=== PATIENT | female | born 1965 | race Two or more races ===

== ENCOUNTER 2024-07-30 09:33 | Emergency (ER) | payer MEDICAID, SELFPAY ==
[2024-07-30 09:34] VITALS: BMI 23.8
[2024-07-30 09:40] VITALS: BP 126/88; PULSE 87; RESP 16; TEMP 36.6; O2SAT 100; BMI 22.6
--- NOTE | 2024-07-30 09:55 | XR_ITS ---
Examination: CT brain head without contrast. 2-D sagittal coronal reconstructions Date and time of exam:2024 10:30 AM Indications: Headaches beginning this morning CTDI: vol (mGy):45.7 DLP: (mGycm):917 Technique: Multiple CT axial sections of the brain have been obtained, 5 mm slice thickness. Contrast has not been administered. 2-D sagittal, coronal reconstructions have been obtained Low dose protocols were performed. One or more of the following dose reduction techniques were used; automated exposure control, adjustment of the mA and/or KV according to patient size, use of iterative reconstruction technique. Findings: No significant ventricular enlargement. Intra-axial or extra-axial hemorrhage density is not seen. No mass effect or midline shift Basal cisterns are not remarkable. Fourth ventricle is midline. Cranial vault intact. Impression: Negative for acute hemorrhage, mass effect or midline shift Significant chronic right sphenoid sinusitis
--- NOTE | 2024-07-30 11:34 | PD.EDHA ---
ED Headache RME/HPI General Chief Complaint: Headache Stated Complaint: EYES HURT A LOT Time Seen by Provider: 07/30/24 09:39 Arrival date/time: 07/30/24 09:33 59-year-old female presents to the emergency department with complaints of headache and eye starting patient ports no fever nausea vomiting no neck pain Limitations: no limitations Related Data Home Medications ?Medication ?Instructions ?Recorded ?Confirmed estradiol 0.01% (0.1 mg/gram) 1 gm vaginal DIRECTED 02/02/20 03/28/24 vaginal cream (Estrace) ascorbic acid (vitamin C) 1,000 mg 1,000 mg PO DAILY 08/14/21 03/28/24 tablet (Vitamin C) metformin 850 mg tablet 850 mg PO QDAY 12/25/22 03/28/24 metoclopramide HCl 5 mg tablet 5 mg PO QAC 12/25/22 03/28/24 omeprazole 40 mg capsule,delayed 40 mg PO QDAY 12/25/22 03/28/24 release Previous Rx's ?Medication ?Instructions ?Recorded hydrocortisone acetate 25 mg 25 mg PA QHS #24 ea 03/28/24 rectal suppository amoxicillin 875 mg-potassium 1 tab PO BID 7 days #14 tabs 07/30/24 clavulanate 125 mg tablet ibuprofen 600 mg tablet 600 mg PO Q6H #30 tabs 07/30/24 tobramycin 0.3 % eye drops 2 drp ophthalmic (eye) Q4H 5 days 07/30/24 #5 mL Allergies Allergy/AdvReac Type Severity Reaction Status Date / Time sulfamethoxazole (From Allergy Severe Rash Verified 07/30/24 09:37 Bactrim) trimethoprim (From Bactrim) Allergy Severe Rash Verified 07/30/24 09:37 Review of Systems Review of Systems Systems Reviewed: All systems reviewed, normal except as documented Constitutional Constitutional: Reports system reviewed and no additional complaints, except as documented, Denies fever(s) and Reports headache(s) Eyes Eyes: Reports system reviewed and no additional complaints, except as documented and Denies blurry vision ENT Ears, Nose, Mouth, and Throat: Reports system reviewed and no additional complaints, except as documented, Reports headache(s), Reports nasal congestion and Reports nasal discharge Cardiovascular Cardiovascular: Reports system reviewed and no additional complaints, except as documented, Denies chest pain and Denies dyspnea Respiratory Respiratory: Reports system reviewed and no additional complaints, except as documented, Denies chest congestion, Denies cough and Denies dyspnea Gastrointestinal Gastrointestinal: Reports system reviewed and no additional complaints, except as documented and Denies abdominal pain Integumentary/Breasts Skin/Breast: Reports system reviewed and no additional complaints, except as documented and Denies rash Neurologic Neurologic: Reports system reviewed and no additional complaints, except as documented, Reports as per HPI and Reports headache(s) Past Medical History Past Medical History NEUROLOGIC: Negative Neurological Disorders, Cerebrovascular Accident, Transient Ischemic Attacks (TIA), Dementia, Alzheimer's Disease, Parkinson's Disease, Brain Tumor, Meningitis, Seizures, Epilepsy, Multiple Sclerosis, Cerebral Palsy, Amyotrophic Lateral Sclerosis (ALS/Gladys Gehrig's), Guillain-Amana Syndrome, Spina Bifida, Paralysis, Peripheral Neuropathy, Dubois's Palsy, Subdural Hematoma, Migraine, Head Trauma, Spinal Cord Injury or Traumatic Brain Injury CARDIAC: Positive Cardiac Disorders, Hypercholesterolemia and Hypertension; Negative Myocardial Infarction, Cardiac Arrhythmia, Atrial Fibrillation, Angina, Heart Murmur, Coronary Artery Disease, Atherosclerotic Heart Disease, Peripheral Vascular Disease, Aneurysm, Congestive Heart Failure, Congenital Heart Disease, Valvular Heart Disease, Rheumatic Fever, Cardiomyopathy, Edema, Pericarditis, Cellulitis, Deep Vein Thrombosis, Hypotension or Varicose Veins RESPIRATORY: Negative Chronic Obstructive Pulmonary Disease (COPD), Asthma, Bronchitis, Emphysema, Pneumonia, Pulmonary Fibrosis, Cystic Fibrosis, Tuberculosis, Pulmonary Embolism, Pulmonary Edema or Sleep Apnea GASTROINTESTINAL: Positive Gastrointestinal Disorders, Gastrointestinal Bleed, Hemorrhoids and Gastroesophageal Reflux Disease; Negative Hepatitis, Cirrhosis, Pancreatitis, Celiac Disease, Gall Bladder Disease, Esophageal Varices, Florez's Esophagus, Colitis, Ulcerative Colitis, Diverticulitis, Diverticulosis, Ulcer, Colorectal Cancer, Irritable Bowel, Crohn's Disease, Obstructive Bowel, Hiatal Hernia or Obesity GENITOURINARY: Positive Genitourinary Disorders and Kidney Stones; Negative Renal Disease, Polycystic Kidney Disease, Neurogenic Bladder, Inguinal Hernia or Dialysis REPRODUCTIVE: Positive Previous Pregnancies (); Negative Breast Cancer, Endometriosis, Pelvic Inflammatory Disease or Uterine Prolapse MUSCULOSKELETAL: Positive Musculoskeletal Disorders, Degenerative Disk Disease and Fractures (Fell at work, right arm ligament tear.); Negative Muscular Dystrophy, Myasthenia Gravis, Marfan's Syndrome, Bone Cancer, Arthritis, Rheumatoid Arthritis, Osteoporosis, Gout, Scoliosis, Carpal Tunnel Syndrome, Fibromyalgia, Degenerative Joint Disease, Osteomyelitis or Poliovirus ENT: Negative Cataracts, Glaucoma, Blind, Retinal Detachment, Macular Degeneration, Ear Infection, Deafness, Head Trauma or Eye Prosthesis ENDOCRINE: Positive Endocrine Disorders and Diabetes Mellitus Type 2; Negative Diabetes Mellitus Type 1, Hypoglycemia, Taylor's Syndrome, [place]'s Disease, Hyperthyroidism, Hypothyroidism, Parathyroid Disease, Pituitary Disease, Systemic Lupus Erythematosus, Syndrome of Inappropriate Antidiuretic Hormone (SIADH), Adrenal Disease or Graves' Disease HEMATOLOGIC: Negative Blood Disorders, Anemia, Leukemia, Hemophilia, Thalassemia, Sickle Cell Disease or Clotting Problems PSYCHO/SOCIAL: Positive Depression and Anxiety; Negative Psychiatric Problems, Schizophrenia, Recreational Drug Use, Bipolar Disorder, Behavior Problems, Self-Mutilation, Attention Deficit Disorder, Attention Deficit Hyperactivity Disorder, Depression, Post Traumatic Stress Disorder or Eating Disorder OTHER HISTORY: Positive Falls, Blood Transfusions, Chicken Pox and Measles; Negative Hospitalization, Autoimmune Disease, Down Syndrome, Autism, Developmental Delay, Shingles, Blood Transfusion Reaction, Anesthesia Reactions, Organ Transplant, Chemotherapy, Radiation Therapy, Hyperbaric Therapy, MRSA, VRSA, Vancomycin-Resistant Enterococci, Human Immunodeficiency Virus (HIV), Mumps, Rubella (Monegasque Measles), Pertussis, Clostridium Difficile, Cancer, Breast Cancer, Cervical Cancer, Colorectal Cancer, Lung Cancer or Ovarian Cancer Family History FAMILY HISTORY: Negative Family Psychiatric Problems, Family Respiratory Disorders, Family Cardiac Disorders, Family Gastrointestinal Problems, Family Cancer, Family Surgery or Family Anesthesia Reaction Surgical History SURGICAL: Positive Hysterectomy and Tubal Ligation; Negative Cardiac Surgery, Open Heart Surgery, Coronary Artery Bypass Graft, Valve Replacement, Vascular Surgery, Coronary Stent, Cardiac Catheterization, Pacemaker, Angiogram, Auto Implanted Cardiovert Defib, Carotid Endarterectomy, Endocrine Surgery, Thyroidectomy, Ear Surgery, Tympanostomy Tube, Eye Surgery, Nose Surgery, Oral Surgery, Tonsillectomy, Adenoidectomy, Cochlear Implant, Corneal Transplant, Throat Surgery, Abdominal Surgery, Tracheostomy, Gastric Bypass Surgery, Gastrostomy, Bowel Surgery, Joint Replacement, Amputation, Open Reduction Internal Fixation, Arthroscopy, Neurologic Surgery, Brain Shunt, Mastectomy, Lumpectomy, Section or Organ Transplant Social History SMOKING STATUS: Never smoker SECOND HAND EXPOSURE: No ED Exam General Limitations: Present no limitations General appearance: Present alert and in no apparent distress Head Head exam: Present atraumatic Eye Eye exam: Present normal appearance, PERRL and EOMI ENT ENT exam: Present mucous membranes moist Expanded ENT Exam Nose exam: Present sinus tenderness Throat exam: Absent tonsillar erythema or tonsillomegaly Neck Neck exam: Present normal inspection, full ROM and trachea midline Chest Chest inspection: Present normal inspection and symmetric chest wall rise Respiratory Respiratory exam: Present normal lung sounds bilaterally Cardiovascular Cardiovascular exam: Present regular rate, normal rhythm and normal heart sounds Abdominal Exam Abdominal exam: Present soft and normal bowel sounds Extremities Exam Extremities exam: Present normal inspection and full ROM Back Exam Back exam: Present normal inspection and full ROM Neurological Exam Neurological exam: Present alert, oriented X3 and CN II-XII intact Psychiatric Psychiatric exam: Present normal affect and normal mood Skin Skin exam: Present warm, dry, intact and normal color Course Quality Measures none Orders Category Date Time Status CT head/brain wo con Stat Exams 07/30/24 09:55 Completed Vital Signs Vital signs: Vital Signs Temperature 97.8 F 07/30/24 09:40 Pulse Rate 87 07/30/24 09:40 Respiratory Rate 16 07/30/24 09:40 Blood Pressure 126/88 H 07/30/24 09:40 Pulse Oximetry (%) 100 07/30/24 09:40 Oxygen Delivery Method Room Air 07/30/24 09:40 O2 saturation 100% room air within the limits Headache MDM Narrative MDM Narrative:: 59-year-old female presents to the emergency department with complaints of headache and eye starting patient ports no fever nausea vomiting no neck pain On exam patient well-appearing patient's not appear ill or toxic patient's not appear acute distress patient walks steady gait patient has no abnormal neurological findings Imaging of the head obtained Patient symptoms consistent with sinusitis patient will treat with course of antibiotics Patient discharged home in no distress to follow-up with primary care doctor in the next 24 to 48 hours and for any worsening symptoms to return to the ER immediately Patient data External records reviewed:: [facility] previous records Clinical information provided by:: patient Social determinants that could affect healthcare access:: none Patient has the following chronic illnesses:: None How is presenting disease/condition affected by chronic disease/condition?: no chronic disease Evaluation data The following diagnostics were reviewed and interpreted by me:: radiology exam(s) Lab and/or radiology exams considered but not ordered:: Radiology obtained Interpretation Summary: Reviewed by me Medications / Prescriptions Medications or Prescriptions considered but not ordered:: Given Medication administrations:: Given Consultations Consultation(s) initiated? (list below): No Diagnosis Differential diagnosis headache: migraine, tension headache and subarachnoid hemorrhage Most likely diagnosis given after review of the tests above:: Headache Admission Indicated Admission indicated?: not indicated Admission Request Was there a request for admission?: No Disposition Plan Disposition Plan: Discharge Discharge Attestation Discharge Attestation: The patient and all family members were given an opportunity to ask questions and understood the discharge instructions. Discharge instructions specifically effects, indications for sooner follow up or return to the emergency department, and the expected course of current diagnosis. Patient condition: Stable Discharge Plan Plan Patient Disposition: HOME (Self Care) Disposition Comment: Stable Prescriptions/Referrals Prescriptions/Med Rec: New tobramycin 0.3 % drops 2 drp ophthalmic (eye) Q4H 5 Days Qty: 5 0RF ibuprofen 600 mg tablet 600 mg PO Q6H Qty: 30 0RF amoxicillin-pot clavulanate 875-125 mg tablet 1 tab PO BID 7 Days Qty: 14 0RF No Action estradiol [Estrace] 0.01 % (0.1 mg/gram) cream 1 gm VAGINAL DIRECTED Rx Instructions: twice a week. hydrocortisone acetate 25 mg suppository 25 mg PA QHS Qty: 24 3RF omeprazole 40 mg capsule,delayed release(DR/EC) 40 mg PO QDAY metoclopramide HCl 5 mg tablet 5 mg PO QAC Rx Instructions: administer 30 minutes before meals metformin 850 mg tablet 850 mg PO QDAY ascorbic acid (vitamin C) [Vitamin C] 1,000 mg Tablet 1,000 mg PO DAILY Referrals: Paola Rose FNP [Primary Care Provider] - 08/02/24 Problem List Clinical Impression: Sinusitis, Corneal irritation of both eyes Patient/Caregiver Discharge Instructions Education Materials: Causes of Sinusitis Additional Instructions: Please follow up with your primary care doctor in the next 24-48hrs for any worsening symptoms return here immediately Print Language: Chinese Stand Alone Forms: Sandy Award Info., Patient Portal Info Letter GOLDEN/DUYEN Supervising Physician GOLDEN/DUYEN Supervising Physician: Dr Kent
== END 2024-07-30 11:55 | disposition home or self-care (01) ==
PROVIDERS: Emergency Provider Emergency Medicine; PCP Nurse Practitioner
DX: J32.9 Chronic sinusitis, unspecified (principal)
CPT/HCPCS: 70450; 99284

== ENCOUNTER → 2024-08-30 | Outpatient (BNVA) | payer MEDICAID, SELFPAY | END | disposition home or self-care (01) | PROVIDERS: PCP Nurse Practitioner; Referring Provider Nurse Practitioner; Visit Provider Physician Assistant | DX: N32.81 Overactive bladder (principal); E11.9 Type 2 diabetes mellitus without complications; I10 Essential (primary) hypertension; Z87.440 Personal history of urinary (tract) infections | CPT/HCPCS: 99212; 99213; Q3014; G0463 ==

== ENCOUNTER → 2024-09-06 | Outpatient (CLI) | payer MEDICAID, SELFPAY ==
--- NOTE | 2024-09-06 08:30 | XR_ITS ---
Examination: Screening digital mammography, bilateral Computer aided detection 3-D breast Tomosynthesis, bilateral Date and time of exam: 09/06/2024, 8:13 AM Comparisons: 08/12/2023 Indications: Screening Technique: Nonmagnified MLO, CC views of the breasts to been obtained, reconstructed from 3-D Tomosynthesis images. R2 computer aided detection program utilized for evaluation of suspicious masses and/or abnormal calcifications. 3-D Tomosynthesis images obtained. Technologist: Findings: There are scattered areas of fibroglandular density. No evidence of abnormal masses or suspicious calcifications. Impression: BI-RADS category 1: Negative findings (within normal) Recommend 1 year follow-up mammogram
== END | disposition home or self-care (01) ==
LOC: CDIM 08:06
PROVIDERS: Referring Provider Specialist; Visit Provider Specialist
DX: Z12.31 Encounter for screening mammogram for malignant neoplasm of breast (principal); R92.313 Mammographic fatty tissue density, bilateral breasts
CPT/HCPCS: 77063; 77067

== ENCOUNTER → 2024-09-29 | Outpatient (CLI) | payer MEDICAID, SELFPAY ==
--- NOTE | 2024-09-29 14:00 | XR_ITS ---
Examination: Retroperitoneal ultrasound, complete Technique: Multiple high resolution grayscale images of the retroperitoneum obtained, including kidneys and bladder. Exam date and time:September 29, 2024 1453 hours INDICATIONS: Lower abdominal pain pain with urination bladder pressure one year, history bladder prolapse FINDINGS: Right kidney 13.1 cm cortex 1.6 cm Left kidney 13.8 cm cortex 2.7 cm Mild bilateral renal parenchymal scar formation No bladder mass or bladder calculi Bladder prevoid volume 406 cc postvoid volume 26 cc IMPRESSION: Bilateral renal parenchymal scar formation No hydronephrosis
== END | disposition home or self-care (01) ==
LOC: CDIM 14:05
PROVIDERS: PCP Physician Assistant; Referring Provider Physician Assistant; Visit Provider Physician Assistant
DX: N28.89 Other specified disorders of kidney and ureter (principal)
CPT/HCPCS: 76770

== ENCOUNTER → 2024-10-11 | Outpatient (BNVA) | payer MEDICAID, SELFPAY | END | disposition home or self-care (01) | PROVIDERS: PCP Nurse Practitioner; Referring Provider Nurse Practitioner; Visit Provider Urology | DX: N35.92 Unspecified urethral stricture, female (principal); G89.4 Chronic pain syndrome; N32.81 Overactive bladder; I10 Essential (primary) hypertension; E78.00 Pure hypercholesterolemia, unspecified; K21.9 Gastro-esophageal reflux disease without esophagitis; E11.9 Type 2 diabetes mellitus without complications | CPT/HCPCS: 52281; 81003; 96372; A4217; A4649; C1894; J1580; A9270 ==

== ENCOUNTER 2024-11-22 17:49 | Emergency (ER) | payer OTHER, MEDICAID, SELFPAY ==
[2024-11-22 17:49] VITALS: BMI 24.7
[2024-11-22 18:24] VITALS: BP 146/88; PULSE 94; RESP 18; TEMP 36.9; O2SAT 98
--- NOTE | 2024-11-22 18:42 | PD.EDNV ---
Nausea/Vomit./Diarrhea-RME/HPI General Chief complaint: Abdominal Pain Stated complaint: DIARRHEA SINCE LAST NIGHT WITH ABD PAIN Arrival date/time: 11/22/24 17:49 RME / HPI RME / HPI Narrative: 59-year-old female presents to the ED with a complaint of nausea, diarrhea, urinary frequency and dysuria. Diarrhea has been quite significant, having 6-10 bouts of diarrhea just since her arrival here in the ED. She denies fever but has had chills. No others are ill at home with similar symptoms. I have greeted and performed a focused initial assessment of this patient. A comprehensive ED assessment and evaluation of the patient, analysis of all test results, and completion of the medical decision making process will be conducted by additional ED providers. Related Data Home Medications ?Medication ?Instructions ?Recorded ?Confirmed estradiol 0.01% (0.1 mg/gram) 1 gm vaginal DIRECTED 02/02/20 10/11/24 vaginal cream (Estrace) ascorbic acid (vitamin C) 1,000 mg 1,000 mg PO DAILY 08/14/21 10/11/24 tablet (Vitamin C) metformin 850 mg tablet 850 mg PO QDAY 12/25/22 10/11/24 metoclopramide HCl 5 mg tablet 5 mg PO QAC 12/25/22 10/11/24 omeprazole 40 mg capsule,delayed 40 mg PO QDAY 12/25/22 10/11/24 release Previous Rx's ?Medication ?Instructions ?Recorded hydrocortisone acetate 25 mg 25 mg VT QHS #24 ea 03/28/24 rectal suppository ibuprofen 600 mg tablet 600 mg PO Q6H #30 tabs 07/30/24 Allergies Allergy/AdvReac Type Severity Reaction Status Date / Time sulfamethoxazole (From Allergy Severe Rash Verified 11/22/24 17:52 Bactrim) trimethoprim (From Bactrim) Allergy Severe Rash Verified 11/22/24 17:52 Course Vital Signs Vital signs: Vital Signs Temperature 98.5 F 11/22/24 18:24 Pulse Rate 94 11/22/24 18:24 Respiratory Rate 18 11/22/24 18:24 Blood Pressure 146/88 H 11/22/24 18:24 Pulse Oximetry (%) 98 11/22/24 18:24 Oxygen Delivery Method Room Air 11/22/24 18:24 Discharge Plan Prescriptions/Referrals Prescriptions/Med Rec: No Action estradiol [Estrace] 0.01 % (0.1 mg/gram) cream 1 gm VAGINAL DIRECTED Rx Instructions: twice a week. hydrocortisone acetate 25 mg suppository 25 mg VT QHS Qty: 24 3RF omeprazole 40 mg capsule,delayed release(DR/EC) 40 mg PO QDAY metoclopramide HCl 5 mg tablet 5 mg PO QAC Rx Instructions: administer 30 minutes before meals metformin 850 mg tablet 850 mg PO QDAY ascorbic acid (vitamin C) [Vitamin C] 1,000 mg Tablet 1,000 mg PO DAILY ibuprofen 600 mg tablet 600 mg PO Q6H Qty: 30 0RF Patient/Caregiver Discharge Instructions Print Language: Tajik
--- NOTE | 2024-11-22 18:48 | EDRME_ITS ---
Rapid Medical Screening Exam [facility] Arrival date/time: 11/22/24 17:49 59-year-old female presents to the ED with a complaint of nausea, diarrhea, urinary frequency and dysuria. Diarrhea has been quite significant, having 6-10 bouts of diarrhea just since her arrival here in the ED. She denies fever but has had chills. No others are ill at home with similar symptoms. I have greeted and performed a focused initial assessment of this patient. A comprehensive ED assessment and evaluation of the patient, analysis of all test results, and completion of the medical decision making process will be conducted by additional ED providers. Chief Complaint: Abdominal Pain Vital signs: Vital Signs Temperature 98.5 F 11/22/24 18:24 Pulse Rate 94 11/22/24 18:24 Respiratory Rate 18 11/22/24 18:24 Blood Pressure 146/88 H 11/22/24 18:24 Pulse Oximetry (%) 98 11/22/24 18:24 Oxygen Delivery Method Room Air 11/22/24 18:24 [facility] Narrative: 59-year-old female presents to the ED with a complaint of nausea, diarrhea, urinary frequency and dysuria. Diarrhea has been quite significant, having 6-10 bouts of diarrhea just since her arrival here in the ED. She denies fever but has had chills. No others are ill at home with similar symptoms. I have greeted and performed a focused initial assessment of this patient. A comprehensive ED assessment and evaluation of the patient, analysis of all test results, and completion of the medical decision making process will be conducted by additional ED providers.
[2024-11-22 19:07] LABS: Collection Type, Urine Clean Catch
[2024-11-22 19:12] LABS: Basophils % (Auto) 0 % (0-2.5); Eosinophils % (Auto) 1 % (0-10); Hematocrit 44.2 % (36.0-46.0); Hemoglobin 14.9 g/dL (12.0-16.0); Immature Granulocytes % (Auto) 0 % (0-0); Immature Granulocytes Auto 0.02 Thou/mm3 (0.00-0.00); Lymphocytes # (Auto) 1.5 Thou/mm3 (1.0-4.8); Lymphocytes % (Auto) 18 % (10-50); Mean Corpuscular HGB Conc 33.7 g/dl (31.0-37.0); Mean Corpuscular Hemoglobin 27.4 pg (25.0-35.0); Mean Corpuscular Volume 81 fL (80-100); Monocytes # (Auto) 0.6 Thou/mm3 (0.0-0.8); Monocytes % (Auto) 7 % (0-12); Neutrophils # (Auto) 6.1 Thou/mm3 (1.8-7.7); Neutrophils % (Auto) 74 % (37-80); Nucleated Red Blood Cell % 0 /100 WBC (0); Platelet Count 186 Thou/mm3 (140-440); RDW Standard Deviation 41.1 fL (36.4-46.3); Red Blood Count 5.44 Miln/mm3 (4.00-5.20); White Blood Count 8.3 Thou/mm3 (3.6-11.0)
[2024-11-22 19:28] LABS: Bilirubin,Urine Negative (Negative); Blood,Urine 1+ (Negative); Calcium Oxalate Crystals,Urine 2+; Clarity,Urine Turbid (Clear/Hazy); Color,Urine Yellow (Lt Yel-Yel); Glucose, Urine 4+ (Negative); Ketones,Urine Negative (Negative); Leukocyte Esterase,Urine Positive (Negative); Nitrite,Urine Negative (Negative); Protein,Urine Trace (Neg - Trace); RBC,Urine 11 /hpf (0-3); Specific Gravity,Urine 1.008 (1.001-1.035); Squamous Epithelial Cell,Urine 1 /hpf (0-5); Urobilinogen,Urine Negative mg/dL (0.0-1.0); WBC,Urine 790 /hpf (0-5)
[2024-11-22 19:30] LABS: HCG Qualitative,Urine Negative
[2024-11-22 19:34] LABS: Alanine Aminotransferase 72 U/L (10-49); Albumin, Serum 4.9 gm/dL (3.5-5.0); Alkaline Phosphatase 94 U/L (46-116); Amylase 54 U/L (30-118); Anion Gap 12 (7-16); Aspartate Amino Transferase 38 U/L (0-34); BUN/Creatinine Ratio 14 Ratio (12-20); Bilirubin,Total 0.5 mg/dL (0.3-1.2); Blood Urea Nitrogen 10 mg/dL (9-23); Calcium 9.7 mg/dL (8.3-10.6); Calcium (Corrected) 9.7 mg/dL (8.5-10.1); Carbon Dioxide 25.4 mMol/L (20.0-31.0); Chloride 96 mMol/L (98-107); Creatinine (Component) 0.7 mg/dL (0.6-1.3); Estimated Creatinine Clearance 76.4 mL/min (>60); Globulin 2.4 gm/dL (2.3-3.5); Glucose 278 mg/dL (74-106); Lipase 36 U/L (12-53); Osmolality,Calculated 275 (275-295); Potassium 3.7 mMol/L (3.4-5.1); Sodium 133 mMol/L (136-145); Total Protein 7.3 gm/dL (5.7-8.2); eGFR > 60 See Note
--- NOTE | 2024-11-22 19:37 | PD.EDABDPN ---
ED Abdominal Pain RME/HPI General Chief Complaint: Abdominal Pain Stated complaint: DIARRHEA SINCE LAST NIGHT WITH ABD PAIN Time seen by provider: 11/22/24 19:30 Arrival date/time: 11/22/24 17:49 RME / HPI RME / HPI narrative: 59-year-old female presents to the ED with a complaint of nausea, diarrhea, urinary frequency and dysuria. Diarrhea has been quite significant, having 6-10 bouts of diarrhea just since her arrival here in the ED. She denies fever but has had chills. No others are ill at home with similar symptoms. I have greeted and performed a focused initial assessment of this patient. A comprehensive ED assessment and evaluation of the patient, analysis of all test results, and completion of the medical decision making process will be conducted by additional ED providers. This section includes all my notes and documentations, including HPI, PE, and ED course. Jesus Alberto Bob MD HPI: 59 y/o female with Hx of Hypertension, Gastrointestinal Bleed, Hemorrhoids, Gastroesophageal Reflux Disease, Kidney Stones, Degenerative Disk Disease, and Diabetes Mellitus Type 2 presents to ED c/o few days of abdominal pain, diarrhea, and dysuria x few days. No other complaints. ROS: All negative except as documented in HPI. Physical Exam: General: Alert and oriented. No acute distress when remaining still. Eyes: Conjunctivae and lids clear. ENT: No nasal congestion. Neck: Supple. Heart: RRR. Lungs: No respiratory distress. Good air movement. No rhonchi, wheezing, rales. Abdomen: Soft with no tenderness. Normal bowel sounds. No distension. No rebound or guarding. Back: No CVA tenderness. Skin: Warm and dry. Neuro: Alert and oriented X 3. I reviewed all diagnostic test results. Blood tests unremarkable. UA showed positive leukocyte esterase, WBC, and bacteria. At this point, diagnoses include UTI, Stomach flu Treatment here included Rocephin 1 g IM and Zofran and two Tylenol #3. Significant improvement noted Recommend outpatient treatment. Based on my best medical judgment, made decision no further evaluation or treatment indicated at this time. Patient understands and agrees to the discharge instructions customized and printed, see below. Discharge Instructions from Dr. Bob: 1. After evaluation, you have stomach flu and UTI.? See attached handouts. 2. Cefdinir and Flagyl to kill the germs causing your infections. 3. Your job is to stay hydrated.? Zofran for nausea/vomiting.? Increase oral fluid and maintain clear urine.? If dark or yellow, increase oral fluid. Tylenol with codeine for severe pain. Clear liquid diet for 24 hours then advance diet as tolerated. 4. Do not take any medications to stop your diarrhea.? But try to replenish the fluid and electrolytes you are losing. 5. Some good choices are water (but not only water because it will cause electrolyte abnormalities), sports drinks like Gatorade (with less sugar content), coconut water, chicken stock, and other fluid with electrolytes (like Pedialyte). 6. See your private doctor on 11/25/2024 if not completely better.? 7. Seek immediate medical care with worsening or with any concerns. Jesus Alberto Bob MD Related Data Home Medications ?Medication ?Instructions ?Recorded ?Confirmed estradiol 0.01% (0.1 mg/gram) 1 gm vaginal DIRECTED 02/02/20 10/11/24 vaginal cream (Estrace) ascorbic acid (vitamin C) 1,000 mg 1,000 mg PO DAILY 08/14/21 10/11/24 tablet (Vitamin C) metformin 850 mg tablet 850 mg PO QDAY 12/25/22 10/11/24 metoclopramide HCl 5 mg tablet 5 mg PO QAC 12/25/22 10/11/24 omeprazole 40 mg capsule,delayed 40 mg PO QDAY 12/25/22 10/11/24 release Previous Rx's ?Medication ?Instructions ?Recorded hydrocortisone acetate 25 mg 25 mg VA QHS #24 ea 03/28/24 rectal suppository ibuprofen 600 mg tablet 600 mg PO Q6H #30 tabs 07/30/24 acetaminophen 300 mg-codeine 30 mg 2 tab PO Q8H PRN pain #20 tabs 11/22/24 tablet cefdinir 300 mg capsule 300 mg PO BID #14 caps 11/22/24 metronidazole 250 mg tablet 250 mg PO BID 7 days #14 tabs 11/22/24 ondansetron 4 mg disintegrating 4 mg PO TID PRN nausea and 11/22/24 tablet vomiting 30 days #10 tabs Allergies Allergy/AdvReac Type Severity Reaction Status Date / Time sulfamethoxazole (From Allergy Severe Rash Verified 11/22/24 17:52 Bactrim) trimethoprim (From Bactrim) Allergy Severe Rash Verified 11/22/24 17:52 Review of Systems Review of Systems Systems Reviewed: All systems reviewed, normal except as documented Past Medical History Past Medical History CARDIAC: Positive Cardiac Disorders and Hypertension GASTROINTESTINAL: Positive Gastrointestinal Disorders, Gastrointestinal Bleed, Hemorrhoids and Gastroesophageal Reflux Disease GENITOURINARY: Positive Genitourinary Disorders and Kidney Stones REPRODUCTIVE: Positive Previous Pregnancies () MUSCULOSKELETAL: Positive Musculoskeletal Disorders, Degenerative Disk Disease and Fractures (Fell at work, right arm ligament tear.) ENDOCRINE: Positive Endocrine Disorders and Diabetes Mellitus Type 2 PSYCHO/SOCIAL: Positive Depression and Anxiety OTHER HISTORY: Positive Falls, Blood Transfusions, Chicken Pox and Measles Surgical History SURGICAL: Positive Hysterectomy and Tubal Ligation ED Exam Narrative Physical exam: Refer to HPI above Course Quality Measures none Orders Category Date Time Status US abdomen Stat Exams 11/22/24 18:43 Stop Req Amylase Stat Lab 11/22/24 19:02 Completed CBC Stat Lab 11/22/24 19:02 Completed Comprehensive Metabolic Panel Stat Lab 11/22/24 19:02 Completed HCG Qualitative,Urine Stat Lab 11/22/24 18:50 Completed Lipase Stat Lab 11/22/24 19:02 Completed Urinalysis Stat Lab 11/22/24 18:50 Completed ACETAMINOPHEN w/COD 300-30 [Tylenol w/Cod #3] Med 11/22/24 19:37 Discontinued 2 tab PO X1 ONE Dicyclomine [Bentyl] Med 11/22/24 18:43 Discontinued 10 mg PO X1 ONE Ondansetron Odt [Zofran Odt] Med 11/22/24 19:37 Discontinued 4 mg PO X1 ONE cefTRIAXone [Rocephin] 1,000 mg Med 11/22/24 19:37 Discontinued Lidocaine 1% 20 ml [Xylocaine 1% 20 ML] 2.1 ml IM X1 Vital Signs Vital signs: Vital Signs Temperature 98.5 F 11/22/24 18:24 Pulse Rate 94 11/22/24 18:24 Respiratory Rate 18 11/22/24 18:24 Blood Pressure 146/88 H 11/22/24 18:24 Pulse Oximetry (%) 98 11/22/24 18:24 Oxygen Delivery Method Room Air 11/22/24 18:24 Abdominal Pain MDM MDM Narrative MDM Narrative:: Scribe Attestation: I, Patrica Tony, am scribing for and in the presence of Dr. Bob. Provider Notation: Although this document has been carefully reviewed, there may still be some phonetic and other typographical errors.? These errors are purely grammatical due to imperfections in the software program and should not be construed in any way to? compromise the substance of the patient's medical care during this visit. 59 y/o female with Hx of Hypertension, Gastrointestinal Bleed, Hemorrhoids, Gastroesophageal Reflux Disease, Kidney Stones, Degenerative Disk Disease, and Diabetes Mellitus Type 2 presents to ED c/o few days of abdominal pain, diarrhea, and dysuria x few days. No other complaints. Patient data External records reviewed:: [facility] previous records (Reviewed prior ED records from 07/30/24. Patient was seen for Corneal irritation of both eyes.) Clinical information provided by:: patient Social determinants that could affect healthcare access:: none Patient has the following chronic illnesses:: Hypertension, Gastrointestinal Bleed, Hemorrhoids, Gastroesophageal Reflux Disease, Kidney Stones, Degenerative Disk Disease, and Diabetes Mellitus Type 2 How is presenting disease/condition affected by chronic disease/condition?: exacerbated by Evaluation data The following diagnostics were reviewed and interpreted by me:: lab results Lab and/or radiology exams considered but not ordered:: None Interpretation Summary: I reviewed all diagnostic test results. Blood tests unremarkable. UA showed positive leukocyte esterase, WBC, and bacteria. Medications / Prescriptions Medications or Prescriptions considered but not ordered:: None Medication administrations:: Medication Administration History Discontinued Medications Acetaminophen/Codeine Phosphate (Acetaminophen W/Cod 300-30 Tablet) 2 tab PO X1 ONE Stop: 11/22/24 19:38 Ceftriaxone Sodium 1,000 mg/ (Lidocaine HCl 2.1 ml) 0 mg IM X1 ONE Stop: 11/22/24 19:38 Dicyclomine HCl (Dicyclomine 10 Mg Capsule) 10 mg PO X1 ONE Stop: 11/22/24 18:44 Ondansetron HCl (Ondansetron Odt 4 Mg Tabrap) 4 mg PO X1 ONE; Protocol Stop: 11/22/24 19:38 Treatment here included Rocephin 1 g IM and Zofran and two Tylenol #3. Consultations Consultation(s) initiated? (list below): No Diagnosis Differential diagnosis abdominal pain: abdominal pain, calculus of kidney, constipation, gastroenteritis, small bowel obstruction and other (UTI) Most likely diagnosis given after review of the tests above:: UTI, Stomach flu Admission Indicated Admission indicated?: not indicated Explain why admission is indicated or not indicated:: With significant improvement, there was no indication for admission. Admission Request Was there a request for admission?: No Disposition Plan Disposition Plan: Discharge Discharge Attestation Discharge Attestation: The patient and all family members were given an opportunity to ask questions and understood the discharge instructions. Discharge instructions specifically effects, indications for sooner follow up or return to the emergency department, and the expected course of current diagnosis. Patient condition: Stable Discharge Plan Plan Patient Disposition: HOME (Self Care) Prescriptions/Referrals Prescriptions/Med Rec: New acetaminophen-codeine 300-30 mg tablet 2 tab PO Q8H MDD 6 PRN (Reason: pain) Qty: 20 0RF cefdinir 300 mg capsule 300 mg PO BID Qty: 14 0RF metronidazole 250 mg tablet 250 mg PO BID 7 Days Qty: 14 0RF ondansetron 4 mg tablet,disintegrating 4 mg PO TID PRN (Reason: nausea and vomiting) 30 Days Qty: 10 0RF No Action estradiol [Estrace] 0.01 % (0.1 mg/gram) cream 1 gm VAGINAL DIRECTED Rx Instructions: twice a week. hydrocortisone acetate 25 mg suppository 25 mg VA QHS Qty: 24 3RF omeprazole 40 mg capsule,delayed release(DR/EC) 40 mg PO QDAY metoclopramide HCl 5 mg tablet 5 mg PO QAC Rx Instructions: administer 30 minutes before meals metformin 850 mg tablet 850 mg PO QDAY ascorbic acid (vitamin C) [Vitamin C] 1,000 mg Tablet 1,000 mg PO DAILY ibuprofen 600 mg tablet 600 mg PO Q6H Qty: 30 0RF Referrals: Tim Mederos [Primary Care Provider] - In 1 week Problem List Clinical Impression: Stomach flu, UTI (urinary tract infection) Patient/Caregiver Discharge Instructions Discharge Activity: activity as tolerated Education Materials: ED CYSTITIS Female Adult, ED Gastroenteritis, Viral (Adult) Additional Instructions: Discharge Instructions from Dr. Bob: 1. After evaluation, you have stomach flu and UTI.? See attached handouts. 2. Cefdinir and Flagyl to kill the germs causing your infections. 3. Your job is to stay hydrated.? Zofran for nausea/vomiting.? Increase oral fluid and maintain clear urine.? If dark or yellow, increase oral fluid. Tylenol with codeine for severe pain. Clear liquid diet for 24 hours then advance diet as tolerated. 4. Do not take any medications to stop your diarrhea.? But try to replenish the fluid and electrolytes you are losing. 5. Some good choices are water (but not only water because it will cause electrolyte abnormalities), sports drinks like Gatorade (with less sugar content), coconut water, chicken stock, and other fluid with electrolytes (like Pedialyte). 6. See your private doctor on 11/25/2024 if not completely better.? 7. Seek immediate medical care with worsening or with any concerns. Instrucciones de mahogany del Dr. Bob: 1. Despu?s de la evaluaci?n, tiene gastroenteritis e infecci?n urinaria. Consulte los folletos adjuntos. 2. Cefdinir y Flagyl para eliminar los g?rmenes que causan las infecciones. 3. Garcia trabajo es mantenerse hidratado. Zofran para las n?useas y los v?mitos. Aumente la ingesta de l?quidos y mantenga la orina jose. Si la orina es oscura o amarilla, aumente la ingesta de l?quidos. Tylenol con code?na para el dolor intenso. Dieta l?quida sharona 24 horas y luego aumente la dieta seg?n la tolerancia. 4. No tome juaquin?n medicamento para detener la diarrea. Intente reponer los l?quidos y electrolitos que est? perdiendo. 5. Algunas buenas opciones son el agua (sheila no solo agua, ya que puede causar anomal?as electrol?angélica), bebidas deportivas naveen Gatorade (con menos contenido de az?car), agua de elli, caldo de jovany y otros l?quidos con electrolitos (naveen Pedialyte). 6. Consulte a garcia m?dico particular el 25/11/2024 si no mejora por completo. 7. Busque atenci?n m?dica inmediata si presenta empeoramiento o cualquier inquietud. Print Language: Cypriot Stand Alone Forms: Sandy Award Info., Patient Portal Info Letter
[2024-11-22] MEDS: ONDANSETRON ODT 4 MG TABRAP PO (20:39)
[2024-11-22] MEDS: ACETAMINOPHEN w/COD 300-30 TABLET 2 TAB PO (20:40)
[2024-11-22] MEDS: cefTRIAXone 1,000 MG, LIDOCAINE 1% 20 ML 2.1 ML IM (20:40)
== END 2024-11-22 20:47 | disposition home or self-care (01) ==
PROVIDERS: Physician Assistant; Emergency Provider Emergency Medicine; PCP Physician Assistant
DX: A08.4 Viral intestinal infection, unspecified (principal); N39.0 Urinary tract infection, site not specified; I10 Essential (primary) hypertension; K21.9 Gastro-esophageal reflux disease without esophagitis; E11.9 Type 2 diabetes mellitus without complications; Z87.442 Personal history of urinary calculi
CPT/HCPCS: 36415; 80053; 81001; 81025; 82150; 83690; 85025; 96372; 99283; J0696; J3490; Q0162; A9270

== ENCOUNTER → 2024-12-02 | Outpatient (CLI) | payer BC, MEDICAID, SELFPAY ==
--- NOTE | 2024-12-02 10:49 | XR_ITS ---
Examination: Left foot 2 views Technique one AP lateral left foot 2 views Date and time: December 02, 2024 1057 hours INDICATIONS: Left foot pain one month. FINDINGS: Mild bunion deformity Mild narrowing first metatarsophalangeal joint Small plantar posterior bony calcaneal spurs No fracture IMPRESSION: Small plantar bony calcaneal spurs
== END | disposition home or self-care (01) ==
PROVIDERS: PCP Nurse Practitioner; Referring Provider Nurse Practitioner; Visit Provider Nurse Practitioner
DX: M77.32 Calcaneal spur, left foot (principal)
CPT/HCPCS: 73620

== ENCOUNTER → 2025-01-27 | Outpatient (CLI) | payer BC, MEDICAID, SELFPAY ==
--- NOTE | 2025-01-27 10:02 | XR_ITS ---
Examination: Knee, left , 3 views Technique: Knee AP, lateral, oblique 3 views Date and time of exam: January 27, 2025 1006 hours INDICATIONS: Left knee weakness one month FINDINGS: Mild narrowing medial joint space Moderate osteopenia. No fracture or dislocation. IMPRESSION: Mild narrowing medial joint space
== END | disposition home or self-care (01) ==
PROVIDERS: PCP Physician Assistant; Referring Provider Physician Assistant; Visit Provider Physician Assistant
DX: M25.862 Other specified joint disorders, left knee (principal)
CPT/HCPCS: 73562